=== PATIENT | male | born 1980 | race Caucasian/White ===

== ENCOUNTER → 2022-12-28 12:15 | Outpatient (BNVA) | payer BC, SELFPAY | PROVIDERS: Visit Provider Family Medicine | DX: Z00.00 Encounter for general adult medical examination without abnormal findings (principal); Z13.6 Encounter for screening for cardiovascular disorders; E11.9 Type 2 diabetes mellitus without complications | CPT/HCPCS: 80053; 80061; 83036; 85025 ==

== ENCOUNTER 2023-02-17 09:29 | Day surgery (SDC) | payer BC, SELFPAY ==
[2023-02-15 10:24] VITALS: BMI 30.7
--- NOTE | 2023-02-17 06:28 | W.PM.OPSFHP ---
Same Day Surgery H&P Indication for Procedure/HPI DATE OF PROCEDURE: February 17, 2023 CHIEF COMPLAINT/INDICATIONFOR SURGICAL PROCEDURE: need for screening colonoscopy abdominal pain PREOP DIAGNOSIS: encounter for screening colonoscopy PLANNED PROCEDURE: Operation Date: 02/17/23 10:40 Proposed Procedures p 94557 EGD 13129 Colonoscopy R19.4, R04.2(Not Applicable) - Seth Thompson MD s Colonoscopy(Not Applicable) - Seth Thompson MD Medications/Allergies* Home Medications Medication Instructions Recorded Confirmed Type multivitamin 1 tab PO DAILY 10/23/21 02/15/23 History Allergies/Adverse Reactions Allergy/AdvReac Type Severity Reaction Status Date / Time metformin Allergy Severe ADR-Confusi Verified 02/15/23 10:22 on lisinopril AdvReac Severe ADV-Weaknes Verified 02/15/23 10:22 s Pertinent History/Comorbid Conditions* Family History (Updated 10/23/21 @ 11:35 by Sonali Swenson LPN) Diabetes Father Chronic kidney disease (CKD) Father Suicide Lung disease Father Cancer Father Sister Grandfather Hypertension Father Stroke Father Grandfather Denies family history of CAD (coronary artery disease) Social History Smoking and tobacco status: current every day smoker Pertinent Exam Findings alert, oriented x 3, clear to auscultation bilaterally and regular rate & rhythm Recommendations Surgery/Procedure today Coding Level of Care Code Acute Code for Chg Fwd Diagnoses
[2023-02-17 09:52] VITALS: BP 132/86; PULSE 73; RESP 18; TEMP 36.3; O2SAT 98
[2023-02-17] MEDS: sodium chloride 0.9% 1,000 ML 30 ML IV (10:06)
--- NOTE | 2023-02-17 10:08 | ANES.PREANE2 ---
Pre-Anesthetic Assessment Height/Weight: Height 1.88 m Weight 108.409 kg Temp Pulse Resp BP Pulse Ox O2 Del Method 97.3 F L 73 18 132/86 98 Room Air 02/17/23 09:52 02/17/23 09:52 02/17/23 09:52 02/17/23 09:52 02/17/23 09:52 02/17/23 09:52 Preop Diagnosis: encounter for screening colonoscopy Operation Date: 02/17/23 10:40 Proposed Procedures p 39922 EGD 02879 Colonoscopy R19.4, R04.2(Not Applicable) - Seth Thompson MD s Colonoscopy(Not Applicable) - Seth Thompson MD Was Beta Sole taken within 24 hours: N/A Was Clonidine taken within 24 hours: N/A Last intake: Intake Last Liquid Date 02/16/23 Last Liquid Time 22:00 Last Solid Date 02/15/23 Last Solid Time 18:00 Social Tobacco (1ppd x25 plus years) 1 pack(s) per day 25 pack years Exam alert and oriented x 3 Airway Submandibular: within normal limits Cervical ROM: within normal limits Mallampati: Class II Dentition: full History/ROS No significant history except as noted Pulmonary Sleep Apnea (doesn't use CPap) CV/HEM None reported denies CP or HTN None reported Hepatic None reported GI Gastroesophageal Reflux Disease (minimal symptoms) Metabolic Diabetes Mellitus Musc/skel Lower Back Pain Neuropsych None reported Anesthetic Plan ASA status: 2 Anesthesia: Eval. for regional block Risk of > 500 ml blood loss (7ml/kg in children): No Medications/Allergies Home Medications Medication Instructions Recorded Confirmed Last Taken Type multivitamin 1 tab PO DAILY 10/23/21 02/15/23 02/15/23 History dulaglutide 1.5 mg/0.5 mL 1.5 mg (0.5 mL) SUBCUT .weekly #2 01/05/23 02/15/23 02/05/23 Rx subcutaneous pen injector mL rosuvastatin 10 mg tablet 10 mg PO DAILY cholesterol #90 tabs 01/19/23 02/15/23 Unknown Rx Allergies Allergy/AdvReac Type Severity Reaction Status Date / Time metformin Allergy Severe ADR-Confusi Verified 02/17/23 09:47 on lisinopril AdvReac Severe ADV-Weaknes Verified 10/03/23 10:22 s Current Medications Generic Name Dose Route Start Last Admin Trade Name Albinoq PRN Reason Stop Dose Admin Sodium Chloride 1,000 mls @ 30 mls/hr 02/17/23 09:45 02/17/23 10:06 Sodium Chloride 0.9% IV 30 mls/hr .Q24H GIORGI Administration PFSH Anesthesia Family History Father Cancer Chronic kidney disease (CKD) Diabetes Hypertension Lung disease Stroke Sister Cancer Grandfather Cancer Stroke Other Suicide Denies family history of CAD (coronary artery disease) Social History Smoking and tobacco status: current every day smoker Data Anesthesia Cardiac Studies: No Data to Display
[2023-02-17 10:18] LABS: Glucose Point of Care 196 mg/dL (70-110)
[2023-02-17 11:21] VITALS: BP 106/70; PULSE 82; RESP 18; TEMP 36.5; O2SAT 91
[2023-02-17 11:29] VITALS: BP 101/69; PULSE 81; RESP 18; TEMP 36.3; O2SAT 95
--- NOTE | 2023-02-17 11:45 | ANE.PACU2 ---
Inpatient post-anesthesia follow up: Airway intact: Yes Vital signs: Temperature 97.4 F Pulse Rate 81 Respiratory Rate 18 Blood Pressure 101/69 Pulse Oximetry 95 Oxygen Delivery Me thod Room Air Oxygen Flow Rate Fraction of Inspir ed Oxygen Hydration adequate: Yes Nausea and vomiting: No Pain level: 1 Mental status: Baseline
== END 2023-02-17 11:47 | disposition home or self-care (01) ==
PROVIDERS: PCP Family Medicine; Visit Provider Surgery
PROC: 0DJ08ZZ Inspection of Upper Intestinal Tract, Via Natural or Artificial Opening Endoscopic (ICD-10-PCS; CPT 43235; principal; 2023-02-17 10:40)
PROC: 0DJD8ZZ Inspection of Lower Intestinal Tract, Via Natural or Artificial Opening Endoscopic (ICD-10-PCS; CPT 45378; 2023-02-17 10:40)
DX: R19.4 Change in bowel habit (principal); R04.2 Hemoptysis; D12.5 Benign neoplasm of sigmoid colon; K29.50 Unspecified chronic gastritis without bleeding; F17.200 Nicotine dependence, unspecified, uncomplicated; G47.30 Sleep apnea, unspecified; E11.9 Type 2 diabetes mellitus without complications; K25.9 Gastric ulcer, unspecified as acute or chronic, without hemorrhage or perforation
CPT/HCPCS: 36416; 43239; 45385; 82962; 88305; 88342; J2704; J3490; J7030

== ENCOUNTER → 2023-03-31 11:49 | Outpatient (BNVA) | payer BC, SELFPAY | PROVIDERS: PCP Family Medicine; Visit Provider Family Medicine | DX: E11.9 Type 2 diabetes mellitus without complications (principal); K29.70 Gastritis, unspecified, without bleeding; Z13.6 Encounter for screening for cardiovascular disorders | CPT/HCPCS: 80061; 83036 ==

== ENCOUNTER 2023-06-16 15:23 | Emergency (ER) | payer BC, SELFPAY ==
[2023-06-16 15:33] VITALS: BP 145/90; PULSE 79; RESP 18; O2SAT 99; BMI 28.5
--- NOTE | 2023-06-16 16:55 | ED_ITS ---
Documented by User: Harvey Zafar DO 06/17/23 06:07 HPI - Nausea/Vomiting/Diarrhea 2 General: Chief complaint: Nausea/Vomiting/Diarrhea Stated complaint: n/v/d Time Seen by Provider: 06/16/23 16:53 Source: patient Mode of arrival: ambulatory History of Present Illness: 43-year-old male presents emergency room with complaints of epigastric pain pain in his right side relieved temporarily by vomiting. No previous abdominal surgeries he is diabetic. He denies any hematochezia melena hematemesis coffee- ground emesis he is not had very much for urine output today was He is to drink for most of the day. He is on Trulicity at the beginning of the year he was unable to get any Trulicity for about 3 weeks and then just recently restarted his Trulicity at the old dose. He had titrated up to high-dose on the Trulicity when he restarted he resumed at the previous dose after he been off of it for 3 to 4 weeks. He has not previously had any history of kidney stones but has brothers and a father who have had kidney stones. He has not noticed any blood in the urine. When I first came in the room patient is extremely uncomfortable kneeling on the ground next to the exam table trying to find a comfortable position. He is able to reposition tolerated exam but is extremely painful to do so for him. MD elicited complaint: nausea and vomiting Onset (ago): hour(s) Description of vomiting: watery and bilious Associated nausea: Yes Associated abdominal pain: Yes Location of pain: L flank Radiation: other (Left groin) Pain consistency: constant Severity: severe Quality: sharp Exacerbating factors: none Relieving factors: none Associated symtoms: Reports anorexia, malaise and nausea; Denies anxiety, bloating, change in vision, chest pain, cough, diaphoresis, decreased urine output, dizziness, dysuria, epistaxis, fatigue, fecal incontinence, fevers/chills, headache(s), myalgias, numbness, palpitations, rash, short of breath, syncope, tenesmus, tinnitus or weakness Review of Systems 2 Const: Reports: malaise; Denies: fever(s), chills, fatigue or diaphoresis Eyes: Denies: change in vision ENMT: Denies: tinnitus or epistaxis Card: Denies: chest pain, palpitations or syncope Resp: Denies: dyspnea GI: Reports: abdominal pain, nausea and vomiting; Denies: hematemesis, diarrhea, bloating, fecal incontinence or hematochezia : Reports: flank pain; Denies: dysuria, urinary frequency or urinary urgency Musc: Denies: neck pain or back pain Skin/Breast: Denies: rash Neuro: Denies: headache(s) or dizziness Psych: Denies: anxiety PFSH ED 2 PFSH: Family History Father Cancer Chronic kidney disease (CKD) Diabetes Hypertension Lung disease Stroke Sister Cancer Grandfather Cancer Stroke Other Suicide Denies family history of CAD (coronary artery disease) Social History Smoking and tobacco/nicotine status: current every day tobacco/nicotine user Physical Exam 2 Const: GENERAL APPEARANCE: cooperative and comfortable O RIENTATION/CONSCIOUSNESS: Yes awake, Yes oriented to person, Yes oriented to place and Yes oriented to time HENMT: COMMON NORMALS: normocephalic, atraumatic and hearing grossly normal bilaterally HEAD & SCALP: normocephalic and atraumatic Resp: COMMON NORMALS: normal respiratory effort, No retractions, No use of accessory muscles and clear to auscultation bilaterally AUSCULTATION: clear to auscultation bilaterally Cardio: COMMON NORMALS: regular rate, regular rhythm and No murmurs present (Cardio) RATE: regular rate RHYTHM: regular rhythm GI: COMMON NORMALS: No hepatosplenomegaly present AUSCULTATION: Yes normoactive bowel sounds PALPATION: Yes Tenderness to palpation present (GI) (Mild diffuse), No Guarding due to palpation present (GI) and Yes No hepatosplenomegaly present : COMMON NORMALS: Yes no CVA tenderness BLADDER/KIDNEY EXAM: Yes no CVA tenderness Back/Pelvis: COMMON NORMALS: no CVA tenderness Extremity: COMMON NORMALS: normal to inspection, capillary refill normal, no clubbing, cyanosis or edema, no calf tenderness and no pedal edema Neuro: SENSORIUM/ORIENTATION: Yes oriented to person, Yes oriented to place and Yes oriented to time Skin: COMMON NORMALS: no rashes or lesions noted GENERAL SKIN EXAM: no rashes or lesions noted Course 2 Vital Signs: Vital signs: Vital Signs Pulse Rate 104 H 06/16/23 22:51 Respiratory Rate 16 06/16/23 18:54 Blood Pressure 133/98 06/16/23 18:54 Pulse Oximetry 97 06/16/23 22:51 Oxygen Delivery Me thod Room Air 06/16/23 21:08 MDM - Nausea/Vomiting/Diarrhea Medical Decision Making Care signed out to Dr. Torres at change of shift. See final notes for diagnosis and disposition. Patient has lab work that was essentially normal unremarkable, white count 11.89, BUN/creatinine 17 and 0.8, normal lactic acid CRP sed rate lipase slightly elevated 86, urinalysis normal except for ketones and glucose. CT scan of the abdomen pelvis was unremarkable except for atherosclerosis. Patient was given morphine, Reglan, and GI cocktail, and the pain decreased substantially. These findings was discussed with the patient. Patient just recently undergone a colonoscopy within the last several months. Patient will be discharged home and follow-up with his family practice doctor for further evaluation and testing. Patient will be placed on Pepcid in addition to his Carafate and Protonix. Lab Data 06/16/23 16:50 06/16/23 16:50 Radiology Impressions Abdomen/Pelvis CT 06/16/23 17:05 IMPRESSION: Atherosclerosis. Laboratory Results WBC 11.89 10^3/uL (3.29-11.43) H 06/16/23 16:50 RBC 5.77 10^6/uL (3.85-5.65) H 06/16/23 16:50 Hgb 17.20 g/dL (11.27-16.99) H 06/16/23 16:50 Hct 50.2 % (37-53) 06/16/23 16:50 MCV 87.0 fl (82-101) 06/16/23 16:50 MCH 29.8 pg (27-33) 06/16/23 16:50 MCHC 34.3 g/dL (30-55) 06/16/23 16:50 RDW 12.0 % (12.1-15.1) L 06/16/23 16:50 Plt Count 267 10^3/cmm (157-399) 06/16/23 16:50 MPV 9.6 fL (7.4-10.4) 06/16/23 16:50 Neut % (Auto) 90.2 % 06/16/23 16:50 Lymph % (Auto) 7.2 % 06/16/23 16:50 [place] % (Auto) 1.9 % 06/16/23 16:50 Eos % (Auto) 0.1 % 06/16/23 16:50 Baso % (Auto) 0.3 % 06/16/23 16:50 Neut # (Auto) 10.72 10^3/uL (1.8-7.7) H 06/16/23 16:50 Lymph # (Auto) 0.9 10^3/uL (0.8-4.8) 06/16/23 16:50 [place] # (Auto) 0.2 10^3/uL (0.2-0.9) 06/16/23 16:50 Eos # (Auto) 0.0 10^3/uL (0.0-0.8) 06/16/23 16:50 Baso # (Auto) 0.0 10^3/uL (0.0-0.1) 06/16/23 16:50 Nucleated RBC % (auto) 0 % 06/16/23 16:50 Nucleated RBCs # 0.0 /100WBC 06/16/23 16:50 ESR 2 mm/hr (0-10) 06/16/23 16:50 Specimen Type Arterial 06/16/23 16:58 Sample Site Radial, left 06/16/23 16:58 ABG pH 7.56 (7.35-7.45) H 06/16/23 16:58 ABG pCO2 19.6 mmHg (35-45) L* 06/16/23 16:58 ABG pO2 123.0 mmHg (80.0-100.0) H 06/16/23 16:58 ABG PO2/FiO2 Ratio 0 06/16/23 16:58 ABG HCO3 17.6 mmol/L (22-26) L 06/16/23 16:58 ABG O2 Saturation 98.8 06/16/23 16:58 ABG Base Excess -1.6 mmol/L (-2.0-2.0) 06/16/23 16:58 [place] Test Pos 06/16/23 16:58 A-a O2 Gradient Not Reportable 06/16/23 16:58 Hematocrit 50.5 % (42-52) 06/16/23 16:58 Hgb O2 Saturation 97.8 % (95-100) 06/16/23 16:58 Carboxyhemoglobin 0.5 %THgb (0.4-20.1) 06/16/23 16:58 Methemoglobin 0.5 % (0.4-1.5) 06/16/23 16:58 Total Hemoglobin 16.5 g/dL (14-18) 06/16/23 16:58 Sodium 140.0 mmol/L (131-143) 06/16/23 16:58 Potassium 3.7 mmol/L (3.5-5.0) 06/16/23 16:58 Glucose 196.0 mg/dL (70-115) H 06/16/23 16:58 Ionized Calcium 1.2 mmol/L (1.1-1.4) 06/16/23 16:58 O2 Delivery Device Room air 06/16/23 16:58 FiO2 21.0 % 06/16/23 16:58 Hospital Clinic Assistant ID [place] 06/16/23 16:58 Sodium 138 mmol/L (136-145) 06/16/23 16:50 Potassium 4.2 mmol/L (3.5-5.1) 06/16/23 16:50 Chloride 100 mmol/L (98-107) 06/16/23 16:50 Carbon Dioxide 22 mmol/L (22-29) 06/16/23 16:50 Anion Gap 20.2 (5-19) H 06/16/23 16:50 BUN 17 mg/dL (6-20) 06/16/23 16:50 Creatinine 0.8 mg/dL (0.7-1.2) 06/16/23 16:50 GFR Calculation 106.5 mL/min (90-130) 06/16/23 16:50 Glucose 201 mg/dL (65-115) H 06/16/23 16:50 Calculated Osmolality 293 mOsm/kg (285-295) 06/16/23 16:50 Lactic Acid 1.4 mmol/L (0.5-2.2) 06/16/23 21:42 Calcium 10.5 mg/dL (8.5-10.5) 06/16/23 16:50 Total Bilirubin 0.8 mg/dL (0.15-1.2) 06/16/23 16:50 AST 15 U/L (0-40) 06/16/23 16:50 ALT 22 U/L (0-41) 06/16/23 16:50 Alkaline Phosphatase 85 U/L (40-130) 06/16/23 16:50 C-Reactive Protein 3.0 mg/L (0.0-4.9) 06/16/23 16:50 Total Protein 8.2 g/dL (6.6-8.7) 06/16/23 16:50 Albumin 5.1 g/dL (3.5-5.2) 06/16/23 16:50 Globulin 3.1 g/dL (1.3-4.6) 06/16/23 16:50 Lipase 86 U/L (13-60) H 06/16/23 16:50 Urine Color Yellow (Yellow) 06/16/23 18:04 Urine Appearance Clear (CLEAR) 06/16/23 18:04 Urine pH 7 (5-7) 06/16/23 18:04 Ur Specific [place] 1.010 (1.005-1.030) 06/16/23 18:04 Urine Protein Neg (Negative) 06/16/23 18:04 Urine Glucose (UA) 4+ (Normal) H 06/16/23 18:04 Urine Ketones 3+ (Negative) H 06/16/23 18:04 Urine Blood Neg (Negative) 06/16/23 18:04 Urine Nitrate Negative (Negative) 06/16/23 18:04 Urine Bilirubin Neg (Negative) 06/16/23 18:04 Urine Urobilinogen Norm mg/dL (Negative) 06/16/23 18:04 Ur Leukocyte Esterase Negative (Negative) 06/16/23 18:04 Serum Ketones Negative (Negative) 06/16/23 16:50 Discharge Plan Discharge Patient Disposition: Home Clinical Impression: Abdominal pain Qualifiers: Abdominal location: epigastric Qualified Code(s): R10.13 - Epigastric pain Nausea & vomiting Qualifiers: Vomiting type: unspecified Qualified Code(s): R11.2 - Nausea with vomiting, unspecified Condition: Stable Prescriptions: New Pepcid 40 mg tablet 40 mg PO BID Qty: 60 0RF Reglan 10 mg tablet 10 mg PO Q6H PRN (Reason: nausea and vomiting) Qty: 20 0RF No Action multivitamin Tablet 1 tab PO DAILY (DME) gluocose meter and supplies See Rx Instructions .Route .MEDSUPPLY Qty: 1 0RF Rx Instructions: check sugars daily, sometimes fasting and sometimes post meal. sildenafil 100 mg tablet 100 mg PO DAILY PRN (Reason: sexual activity) Qty: 30 1RF Rx Instructions: administer 30 minutes to 4 hours before activity sucralfate [Carafate] 1 gram tablet 1 g PO BID 28 Days Qty: 56 0RF pantoprazole 40 mg tablet,delayed release (DR/EC) 40 mg PO BID 30 Days Qty: 60 5RF rosuvastatin 10 mg tablet 10 mg PO DAILY Qty: 90 1RF dulaglutide 1.5 mg/0.5 mL pen injector 1.5 mg SUBCUT .weekly Qty: 2 4RF Discharge Orders: Discharge ED (Routine); Ordered 06/16/23 Ordered By: Julian Torres Referrals: Cristofer Henry DO [Primary Care Provider] - 1 week Patient Instructions: Acute Nausea and Vomiting (ED), Abdominal Pain (ED) Activity Restrictions/Additional Instructions: Here evaluation in ER that included blood work, urinalysis, CT scan of the abdomen pelvis was essentially unremarkable. He did not show any acute causes for your abdominal pain. With the addition of the GI cocktail that seemed to help it may be more gastritis or ulcer related. We have added on some Pepcid and Reglan to your daily regimen to see if this will help. Please follow-up with your family practice doctor for further evaluation and treatment. Coding Level of Care Code ED Information Technology Technician for Chg Fwd Documented by User: Julian Torres DO 06/17/23 01:58 HPI - Nausea/Vomiting/Diarrhea 2 General: Chief complaint: Nausea/Vomiting/Diarrhea Stated complaint: n/v/d Time Seen by Provider: 06/16/23 16:53 PFSH ED 2 PFSH: Family History Father Cancer Chronic kidney disease (CKD) Diabetes Hypertension Lung disease Stroke Sister Cancer Grandfather Cancer Stroke Other Suicide Denies family history of CAD (coronary artery disease) Social History Smoking and tobacco/nicotine status: current every day tobacco/nicotine user Course 2 Vital Signs: Vital signs: Vital Signs Pulse Rate 104 H 06/16/23 22:51 Respiratory Rate 16 06/16/23 18:54 Blood Pressure 133/98 06/16/23 18:54 Pulse Oximetry 97 06/16/23 22:51 Oxygen Delivery Me thod Room Air 06/16/23 21:08 MDM - Nausea/Vomiting/Diarrhea Medical Decision Making Patient has lab work that was essentially normal unremarkable, white count 11.89, BUN/creatinine 17 and 0.8, normal lactic acid CRP sed rate lipase slightly elevated 86, urinalysis normal except for ketones and glucose. CT scan of the abdomen pelvis was unremarkable except for atherosclerosis. Patient was given morphine, Reglan, and GI cocktail, and the pain decreased substantially. These findings was discussed with the patient. Patient just recently undergone a colonoscopy within the last several months. Patient will be discharged home and follow-up with his family practice doctor for further evaluation and testing. Patient will be placed on Pepcid in addition to his Carafate and Protonix. Lab Data 06/16/23 16:50 06/16/23 16:50 Radiology Impressions Abdomen/Pelvis CT 06/16/23 17:05 IMPRESSION: Atherosclerosis. Laboratory Results WBC 11.89 10^3/uL (3.29-11.43) H 06/16/23 16:50 RBC 5.77 10^6/uL (3.85-5.65) H 06/16/23 16:50 Hgb 17.20 g/dL (11.27-16.99) H 06/16/23 16:50 Hct 50.2 % (37-53) 06/16/23 16:50 MCV 87.0 fl (82-101) 06/16/23 16:50 MCH 29.8 pg (27-33) 06/16/23 16:50 MCHC 34.3 g/dL (30-55) 06/16/23 16:50 RDW 12.0 % (12.1-15.1) L 06/16/23 16:50 Plt Count 267 10^3/cmm (157-399) 06/16/23 16:50 MPV 9.6 fL (7.4-10.4) 06/16/23 16:50 Neut % (Auto) 90.2 % 06/16/23 16:50 Lymph % (Auto) 7.2 % 06/16/23 16:50 [place] % (Auto) 1.9 % 06/16/23 16:50 Eos % (Auto) 0.1 % 06/16/23 16:50 Baso % (Auto) 0.3 % 06/16/23 16:50 Neut # (Auto) 10.72 10^3/uL (1.8-7.7) H 06/16/23 16:50 Lymph # (Auto) 0.9 10^3/uL (0.8-4.8) 06/16/23 16:50 [place] # (Auto) 0.2 10^3/uL (0.2-0.9) 06/16/23 16:50 Eos # (Auto) 0.0 10^3/uL (0.0-0.8) 06/16/23 16:50 Baso # (Auto) 0.0 10^3/uL (0.0-0.1) 06/16/23 16:50 Nucleated RBC % (auto) 0 % 06/16/23 16:50 Nucleated RBCs # 0.0 /100WBC 06/16/23 16:50 ESR 2 mm/hr (0-10) 06/16/23 16:50 Specimen Type Arterial 06/16/23 16:58 Sample Site Radial, left 06/16/23 16:58 ABG pH 7.56 (7.35-7.45) H 06/16/23 16:58 ABG pCO2 19.6 mmHg (35-45) L* 06/16/23 16:58 ABG pO2 123.0 mmHg (80.0-100.0) H 06/16/23 16:58 ABG PO2/FiO2 Ratio 0 06/16/23 16:58 ABG HCO3 17.6 mmol/L (22-26) L 06/16/23 16:58 ABG O2 Saturation 98.8 06/16/23 16:58 ABG Base Excess -1.6 mmol/L (-2.0-2.0) 06/16/23 16:58 [place] Test Pos 06/16/23 16:58 A-a O2 Gradient Not Reportable 06/16/23 16:58 Hematocrit 50.5 % (42-52) 06/16/23 16:58 Hgb O2 Saturation 97.8 % (95-100) 06/16/23 16:58 Carboxyhemoglobin 0.5 %THgb (0.4-20.1) 06/16/23 16:58 Methemoglobin 0.5 % (0.4-1.5) 06/16/23 16:58 Total Hemoglobin 16.5 g/dL (14-18) 06/16/23 16:58 Sodium 140.0 mmol/L (131-143) 06/16/23 16:58 Potassium 3.7 mmol/L (3.5-5.0) 06/16/23 16:58 Glucose 196.0 mg/dL (70-115) H 06/16/23 16:58 Ionized Calcium 1.2 mmol/L (1.1-1.4) 06/16/23 16:58 O2 Delivery Device Room air 06/16/23 16:58 FiO2 21.0 % 06/16/23 16:58 Hospital Clinic Assistant ID [place] 06/16/23 16:58 Sodium 138 mmol/L (136-145) 06/16/23 16:50 Potassium 4.2 mmol/L (3.5-5.1) 06/16/23 16:50 Chloride 100 mmol/L (98-107) 06/16/23 16:50 Carbon Dioxide 22 mmol/L (22-29) 06/16/23 16:50 Anion Gap 20.2 (5-19) H 06/16/23 16:50 BUN 17 mg/dL (6-20) 06/16/23 16:50 Creatinine 0.8 mg/dL (0.7-1.2) 06/16/23 16:50 GFR Calculation 106.5 mL/min (90-130) 06/16/23 16:50 Glucose 201 mg/dL (65-115) H 06/16/23 16:50 Calculated Osmolality 293 mOsm/kg (285-295) 06/16/23 16:50 Lactic Acid 1.4 mmol/L (0.5-2.2) 06/16/23 21:42 Calcium 10.5 mg/dL (8.5-10.5) 06/16/23 16:50 Total Bilirubin 0.8 mg/dL (0.15-1.2) 06/16/23 16:50 AST 15 U/L (0-40) 06/16/23 16:50 ALT 22 U/L (0-41) 06/16/23 16:50 Alkaline Phosphatase 85 U/L (40-130) 06/16/23 16:50 C-Reactive Protein 3.0 mg/L (0.0-4.9) 06/16/23 16:50 Total Protein 8.2 g/dL (6.6-8.7) 06/16/23 16:50 Albumin 5.1 g/dL (3.5-5.2) 06/16/23 16:50 Globulin 3.1 g/dL (1.3-4.6) 06/16/23 16:50 Lipase 86 U/L (13-60) H 06/16/23 16:50 Urine Color Yellow (Yellow) 06/16/23 18:04 Urine Appearance Clear (CLEAR) 06/16/23 18:04 Urine pH 7 (5-7) 06/16/23 18:04 Ur Specific [place] 1.010 (1.005-1.030) 06/16/23 18:04 Urine Protein Neg (Negative) 06/16/23 18:04 Urine Glucose (UA) 4+ (Normal) H 06/16/23 18:04 Urine Ketones 3+ (Negative) H 06/16/23 18:04 Urine Blood Neg (Negative) 06/16/23 18:04 Urine Nitrate Negative (Negative) 06/16/23 18:04 Urine Bilirubin Neg (Negative) 06/16/23 18:04 Urine Urobilinogen Norm mg/dL (Negative) 06/16/23 18:04 Ur Leukocyte Esterase Negative (Negative) 06/16/23 18:04 Serum Ketones Negative (Negative) 06/16/23 16:50 XR interpretation done by ED provider, pending radiology final review Discharge Plan Discharge Patient Disposition: Home Clinical Impression: Abdominal pain Qualifiers: Abdominal location: epigastric Qualified Code(s): R10.13 - Epigastric pain Nausea & vomiting Qualifiers: Vomiting type: unspecified Qualified Code(s): R11.2 - Nausea with vomiting, unspecified Condition: Stable Prescriptions: New Pepcid 40 mg tablet 40 mg PO BID Qty: 60 0RF Reglan 10 mg tablet 10 mg PO Q6H PRN (Reason: nausea and vomiting) Qty: 20 0RF No Action multivitamin Tablet 1 tab PO DAILY (DME) gluocose meter and supplies See Rx Instructions .Route .MEDSUPPLY Qty: 1 0RF Rx Instructions: check sugars daily, sometimes fasting and sometimes post meal. sildenafil 100 mg tablet 100 mg PO DAILY PRN (Reason: sexual activity) Qty: 30 1RF Rx Instructions: administer 30 minutes to 4 hours before activity sucralfate [Carafate] 1 gram tablet 1 g PO BID 28 Days Qty: 56 0RF pantoprazole 40 mg tablet,delayed release (DR/EC) 40 mg PO BID 30 Days Qty: 60 5RF rosuvastatin 10 mg tablet 10 mg PO DAILY Qty: 90 1RF dulaglutide 1.5 mg/0.5 mL pen injector 1.5 mg SUBCUT .weekly Qty: 2 4RF Discharge Orders: Discharge ED (Routine); Ordered 06/16/23 Ordered By: Julian Torres Referrals: Cristofer Henry, [Primary Care Provider] - 1 week Patient Instructions: Acute Nausea and Vomiting (ED), Abdominal Pain (ED) Activity Restrictions/Additional Instructions: Here evaluation in ER that included blood work, urinalysis, CT scan of the abdomen pelvis was essentially unremarkable. He did not show any acute causes for your abdominal pain. With the addition of the GI cocktail that seemed to help it may be more gastritis or ulcer related. We have added on some Pepcid and Reglan to your daily regimen to see if this will help. Please follow-up with your family practice doctor for further evaluation and treatment. Coding Level of Care Code ED Information Technology Technician for Kerrie Dodd
[2023-06-16] MEDS: ondansetron 2 mg/ML SDV 2 mL 4 MG IVP (17:02)
[2023-06-16] MEDS: sodium chloride 0.9% 1,000 ML 999 ML IV ×2 (17:03→19:54)
[2023-06-16 17:04] LABS: Basophils % 0.3 %; Eosinophils % 0.1 %; Hematocrit 50.2 % (37-53); Lymphocytes # 0.9 10^3/uL (0.8-4.8); Lymphocytes % 7.2 %; Mean Corpuscular HGB Conc 34.3 g/dL (30-55); Mean Corpuscular Hemoglobin 29.8 pg (27-33); Mean Platelet Volume 9.6 fL (7.4-10.4); Monocytes # 0.2 10^3/uL (0.2-0.9); Monocytes % 1.9 %; Neutrophils # 10.72 10^3/uL (1.8-7.7); Neutrophils % 90.2 %; Nucleated Red Blood Cells % 0 %; Platelet Count 267 10^3/cmm (157-399); Red Blood Count 5.77 10^6/uL (3.85-5.65); White Blood Count 11.89 10^3/uL (3.29-11.43)
[2023-06-16] MEDS: morphine 4 mg/mL SDV 1 mL IVP ×2 (17:05→18:20)
--- NOTE | 2023-06-16 17:05 | CTR_ITS ---
PROCEDURE INFORMATION: Exam: CT Abdomen And Pelvis Without Contrast Exam date and time: 06/16/2023 5:43 PM Age: 43 years old Clinical indication: Abdominal pain; Flank; Other: Bilat; Additional info: Flank pain TECHNIQUE: Imaging protocol: Computed tomography of the abdomen and pelvis without contrast. Radiation optimization: All CT scans at this facility use at least one of these dose optimization techniques: automated exposure control; mA and/or kV adjustment per patient size (includes targeted exams where dose is matched to clinical indication); or iterative reconstruction. COMPARISON: No relevant prior studies available. RADIATION DOSE METRICS: Total DLP (mGy-cm): 818 FINDINGS: Lungs: Minimal, linear opacities at dependent portions of bilateral lower lobes likely reflect subsegmental atelectasis. Pleural spaces: No pleural effusions. Heart: Visualized heart is normal in size. Liver: Normal. Gallbladder and bile ducts: Grossly normal. No calcified stones. No intra or extrahepatic duct dilation. Pancreas: Normal. No pancreatic duct dilation. Spleen: Normal. No splenomegaly. Adrenal glands: Normal. No mass. Kidneys and ureters: Normal. No hydronephrosis. Stomach and bowel: Grossly unremarkable. No obstruction. No wall thickening. Appendix: Mild, high attenuation areas within partially gas-filled, nondilated, inferiorly directed appendix suggest ingested dense material. No periappendiceal fat stranding to suggest acute appendicitis. Intraperitoneal space: No pneumoperitoneum. No free fluid. No loculated fluid collection. Retroperitoneal space: No free fluid. Vasculature: Abdominal aorta and right iliac artery are mild-moderately calcified. Left iliac artery and origin of left main renal artery are mildly calcified. Lymph nodes: No radiographically enlarged lymph nodes. Urinary bladder: Grossly normal. Reproductive: Grossly normal. Bones/joints: There is mild right mid-lower thoracic and minimal left mid lumbar curvature or scoliosis. < 7 mm, triangular, well-corticated ossification adjacent to anterior aspect of superior endplate of L5 vertebra suggests chronic, mildly displaced, nonunited, teardrop fracture or limbus vertebra. Several, < 1 cm, oval and lobulated, well-defined, sclerotic lesions at superior endplate of L1 vertebra, right iliac wing, tecta of bilateral acetabula, right pubic bone and superior pubic ramus, left ischium, and bilateral femoral heads statistically probably represent benign bone islands. Several, < 1 cm, oval, well-defined lucencies with sclerotic margins at bilateral anterior femoral necks likely reflect incidental herniation pits. Degenerative disc disease of lower thoracic and a few levels of lumbar spine is present. Moderate traction osteophyte at right femoral lesser trochanter and mild traction osteophyte and left femoral greater trochanter are evident. Soft tissues: Grossly normal. CT/CT kidney stone [id number] IMPRESSION: Atherosclerosis.
[2023-06-16 17:10] LABS: ABG PCO2 19.6 mmHg (35-45); ABG PH Result 7.56 (7.35-7.45); Arterial Blood Gas Hematocrit 50.5 % (42-52); Base Excess ABG -1.6 mmol/L (-2.0-2.0); Blood Gas Allen Test Pos; Blood Gas Operator Identificat WALCI; Blood Gas Sample Site Radial, left; Blood Gas Sample Type Arterial; Carboxyhemoglobin 0.5 %THgb (0.4-20.1); HCO3 ABG 17.6 mmol/L (22-26); HGB O2 Sat 97.8 % (95-100); Ionized Calcium Level - ABG 1.2 mmol/L (1.1-1.4); Methemoglobin 0.5 % (0.4-1.5); Oxygen Device ROOM AIR; Oxygen Saturation ABG 98.8; PO2 FiO2 Ratio Arterial Blood 0; Potassium Level - ABG 3.7 mmol/L (3.5-5.0); Total Hemoglobin 16.5 g/dL (14-18)
[2023-06-16 17:20] LABS: Alanine Aminotransferase 22 U/L (0-41); Albumin Level 5.1 g/dL (3.5-5.2); Alkaline Phosphatase 85 U/L (40-130); Anion Gap 20.2 (5-19); Aspartate Amino Transferase 15 U/L (0-40); Blood Urea Nitrogen 17 mg/dL (6-20); Calcium 10.5 mg/dL (8.5-10.5); Carbon Dioxide 22 mmol/L (22-29); Chloride 100 mmol/L (98-107); Globulin 3.1 g/dL (1.3-4.6); Glomerular Filtration Rate 106.5 mL/min (90-130); Glucose 201 mg/dL (65-115); Lipase 86 U/L (13-60); Osmolality Calculated 293 mOsm/kg (285-295); Potassium 4.2 mmol/L (3.5-5.1); Sodium 138 mmol/L (136-145); Total Bilirubin 0.8 mg/dL (0.15-1.2); Total Protein 8.2 g/dL (6.6-8.7)
[2023-06-16 17:23] LABS: Ketone (Acetest) Serum Negative (Negative)
[2023-06-16 18:07] LABS: Add Urine Microscopic? NO; Charge for UA Resulting for Rev
[2023-06-16 18:15] LABS: Bilirubin Urine Neg (Negative); Blood Urine Neg (Negative); Glucose Urine UA 4+ (Normal); Ketones Urine 3+ (Negative); Leukocyte Esterase Urine Negative (Negative); Nitrate Urine Negative (Negative); Protein Urine Neg (Negative); Urine Appearance Clear (CLEAR); Urine Color Yellow (Yellow); Urobilinogen Urine Norm (Negative); pH Urine 7 (5-7)
[2023-06-16 18:54] VITALS: BP 133/98; PULSE 74; RESP 16; O2SAT 96
--- NOTE | 2023-06-16 19:00 | PC.NURSE ---
Assumed care from REUBEN Kenyon at this time.
[2023-06-16] MEDS: metoclopramide 5 mg/mL SDV 2 mL 10 MG IVP ×2 (19:54→20:58)
[2023-06-16 21:08] VITALS: PULSE 65; O2SAT 100
[2023-06-16] MEDS: lidocaine 2% viscous 15 ML, aluminum-mag hydrox-simethicon 30 ML, sucralfate oral liq 1 GM PO (21:13)
[2023-06-16 21:21] LABS: Erythrocyte Sedimentation Rate 2 mm/hr (0-10)
[2023-06-16 22:05] LABS: Lactic Sepsis W/Reflex 1.4 mmol/L (0.5-2.2)
[2023-06-16 22:51] VITALS: PULSE 104; O2SAT 97
== END 2023-06-16 22:52 | disposition home or self-care (01) ==
PROVIDERS: Emergency Medicine; Emergency Provider Family Medicine; PCP Family Medicine
DX: R10.13 Epigastric pain (principal); Z72.0 Tobacco use
CPT/HCPCS: 36600; 74176; 80051; 80053; 81003; 82009; 82330; 82805; 83605; 83690; 85025; 85651; 86140; 96361; 96374; 96375; 96376; 99285; J2270; J2405; J2765; J7030

== ENCOUNTER 2023-06-30 15:35 | Outpatient (CLI) | payer BC, SELFPAY ==
--- NOTE | 2023-06-30 16:00 | USCV_ITS ---
Jet Pedro III Age: 43 Gender: M : 1980 Exam Date: 06/30/2023 16:00 Ordering Phys: Cristofer Henry DO Technologist: CHUCK [place]am Location[place] [facility] [place] Indication: atherosclerosis Risk Factors: Previous Vascular Surgery: Right Brachial BP: / Left Brachial BP: / Right Left Velocity (cm/s) Spectral Plaque Velocity (cm/s) Spectral Plaque Syst/Diast Broadening Syst/Diast Broadening 104.30/17.20 Prox CCA 116.30/ 21.80 115.20/19.40 Mid CCA 128.90/ 24.90 117.40/21.60 Distal CCA 141.60/ 31.20 69.50/ 19.40 Prox ICA 50.20 / 16.30 80.40/ 32.50 Mid ICA 51.30 / 28.30 100.00/30.30 Distal ICA 70.90 / 26.10 100.00 ECA 57.80 0.90 ICA/CCA 0.50 Antegrade Vertebral Antegrade 53.80/ 17.10 cm/s 51.20/ 11.90 cm/s Tri Subclavian Tri 196.1 79.40 0 FINDINGS Comparison: none available. No significant elevation of systolic or diastolic velocities. Waveforms are normal. Mild carotid atherosclerosis. CONCLUSIONS Bilateral ICA stenosis less than 50%. Mild carotid atherosclerosis. Dr. Qian Fong DO (Electronically Signed) Final Date: 01 July 2023 07:48 S
== END 2023-06-30 15:36 | disposition home or self-care (01) ==
LOC: RAD 15:38
PROVIDERS: PCP Family Medicine; Visit Provider Family Medicine
DX: I65.23 Occlusion and stenosis of bilateral carotid arteries (principal)
CPT/HCPCS: 93880

== ENCOUNTER → 2023-10-20 11:49 | Outpatient (BNVA) | payer BC, SELFPAY | PROVIDERS: PCP Family Medicine; Visit Provider Family Medicine | DX: E11.9 Type 2 diabetes mellitus without complications (principal); K85.90 Acute pancreatitis without necrosis or infection, unspecified; R19.4 Change in bowel habit; Z13.6 Encounter for screening for cardiovascular disorders | CPT/HCPCS: 80053; 83036; 83690 ==

== ENCOUNTER → 2024-01-05 11:44 | Outpatient (BNVA) | payer BC, SELFPAY | PROVIDERS: PCP Family Medicine; Visit Provider Family Medicine | DX: E11.9 Type 2 diabetes mellitus without complications (principal); K85.90 Acute pancreatitis without necrosis or infection, unspecified | CPT/HCPCS: 80053; 80061; 83036; 83690 ==

== ENCOUNTER → 2024-02-13 10:31 | Outpatient (BNVA) | payer BC, SELFPAY | PROVIDERS: PCP Family Medicine; Visit Provider Family Medicine | DX: K85.90 Acute pancreatitis without necrosis or infection, unspecified (principal) | CPT/HCPCS: 80053; 83690; 85025 ==

== ENCOUNTER → 2024-04-16 09:38 | Outpatient (BNVA) | payer BC, SELFPAY | PROVIDERS: PCP Family Medicine; Visit Provider Family Medicine | DX: E11.9 Type 2 diabetes mellitus without complications (principal); K85.90 Acute pancreatitis without necrosis or infection, unspecified | CPT/HCPCS: 80053; 80061; 83036; 83690 ==

== ENCOUNTER → 2025-02-08 09:29 | Outpatient (BNVA) | payer BC, SELFPAY | PROVIDERS: PCP Family Medicine; Visit Provider Family Medicine | DX: E11.9 Type 2 diabetes mellitus without complications (principal); K29.70 Gastritis, unspecified, without bleeding; K85.90 Acute pancreatitis without necrosis or infection, unspecified; R19.4 Change in bowel habit | CPT/HCPCS: 80053; 80061; 82785; 83036; 83690; 83721; 85025; 86001; 86003 ==